=== PATIENT | female | born 1990 | race Caucasian/White ===

== ENCOUNTER 2019-01-18 16:37 | Outpatient (CLI) | payer BC ==
[~2019-01-18] VITALS: Ht 167.6 cm; Wt 119.8 kg
[~2019-01-18 16:37] MED LIST: PREN-93 PO
[2019-01-18 17:38] VITALS: BP 102/60; PULSE 84; RESP 18; Ht 167.6 cm; Wt 119.8 kg
== END 2019-01-18 21:50 | disposition home or self-care (01) ==
LOC: OBT 16:37 → L-D 16:40 → OBT 21:50
PROVIDERS: ATTEND Obstetrics & Gynecology
DX: O26.893 Other specified pregnancy related conditions, third trimester (principal); Z3A.39 39 weeks gestation of pregnancy; R10.9 Unspecified abdominal pain
CPT/HCPCS: 76815; 76818; 81001; G0463

== ENCOUNTER 2019-01-25 16:09 | Outpatient (CLI) | payer BC ==
[~2019-01-25] VITALS: Ht 167.6 cm; Wt 119.3 kg
[2019-01-25 17:51] VITALS: Ht 167.6 cm; Wt 119.3 kg
[2019-01-25 17:52] VITALS: BP 123/72; PULSE 76; RESP 18
== END 2019-01-25 20:15 | disposition home or self-care (01) ==
LOC: OBT 16:09 → L-D 16:10 → OBT 20:15
PROVIDERS: ATTEND Obstetrics & Gynecology
DX: O48.0 Post-term pregnancy (principal); O41.03X0 Oligohydramnios, third trimester, not applicable or unspecified; Z3A.40 40 weeks gestation of pregnancy
CPT/HCPCS: 76815; 76818; G0463